=== PATIENT | female | born 1960 | race Caucasian/White ===

== ENCOUNTER 2021-08-17 14:47 | Inpatient (IN) ==
[2021-08-17] MEDS ORDERED: SODIUM CHLORIDE 0.9% 1,000 ML IV STA (16:43)
[2021-08-17] MEDS ORDERED: ONDANSETRON 4 MG/2 ML VIAL IV STA (16:43)
[2021-08-17 17:23] LABS: Basophils # 0.1 10*3/uL (0.0-0.2); Basophils % 0.3 % (0.0-0.8); Eosinophils % 0.1 % (0.00-10.9); Hematocrit 36.7 VOL% (35.7-47.0); Hemoglobin 12.4 GM/DL (12.0-16.0); Immature Granulocytes % 0.5 %; Immature Granulocytes Absolute 0.09 #; Lymphocytes # 0.5 10*3/uL (1.4-4.0); Lymphocytes % 2.7 % (21.3-54.2); Mean Corpuscular HGB Conc 33.8 GM/DL (32-36); Mean Corpuscular Volume 95.3 FL (87-102); Mean Platelet Volume 10.2 FL (9.6-12.0); Monocytes % 2.9 % (1.7-12.7); Neutrophils % 93.5 % (38.7-73.9); Platelet Count 319 T/CUMM (130-400); Red Blood Count 3.85 MC/CUMM (3.8-5.5); Red Cell Distribution Width 12.3 % (9.3-17.3)
[2021-08-17 17:48] LABS: Alanine Aminotransferase 14 U/L (13-56); Alkaline Phosphatase 65 U/L (45-117); Aspartate Amino Transferase 14 U/L (0-37); Blood Urea Nitrogen 34 MG/DL (7-18); Calcium 8.7 MG/DL (8.5-10.1); Carbon Dioxide 27 MMOL/L (21-32); Estimated Glom Filtration Rate 7 ML/MIN; Glucose 130 MG/DL (74-106); Osmolality,Calculated 279.1 MOS/KG (273-304); Potassium 2.9 MMOL/L (3.5-5.1); Sodium 135 MMOL/L (136-145); Total Protein 7.1 G/DL (6.4-8.2)
[2021-08-17] MEDS ORDERED: HYDROmorphone 2 MG/1 ML VIAL ONE (17:53)
[2021-08-17 17:55] LABS: Band Neutrophils 4 % (0-10); Lymphocytes 3 % (20-55); Segmented Neutrophils 93 % (50-85); Total Cells Counted 100
[2021-08-17 17:56] LABS: Platelet Estimate Adequate
[2021-08-17] MEDS ORDERED: HYDROmorphone 2 MG/1 ML VIAL IV STA (18:01)
[2021-08-17] MEDS ORDERED: VANCOMYCIN INJ 1,000 MG in SODIUM CHLORIDE 0.9% 250 ML IV STA (19:26)
[2021-08-17] MEDS ORDERED: POTASSIUM CHLORIDE 20 MEQ TABLET PO STA (19:39)
[2021-08-17] MEDS ORDERED: NICOTINE 21 MG/24 HR PATCH TRANSDERM PRN (20:15)
[2021-08-17] MEDS ORDERED: MORPHINE 2 MG/1 ML SYRINGE IV PRN (20:15)
[2021-08-17] MEDS ORDERED: hydrALAZINE 20 MG/1 ML VIAL IV PRN (20:15)
[2021-08-17] MEDS ORDERED: ACETAMINOPHEN 325 MG TABLET PO PRN (20:15)
[2021-08-17] MEDS ORDERED: GLUCAGON 1 MG VIAL IM PRN (20:15)
[2021-08-17] MEDS ORDERED: DEXTROSE 10% 25 GM/250 ML BAG IV PRN (20:21)
[2021-08-17] MEDS ORDERED: LEVOFLOXACIN INJ 500 MG/100 ML PREMIX IV ONE (20:21)
[2021-08-17] MEDS ORDERED: VANCOMYCIN INJ 2,000 MG in SODIUM CHLORIDE 0.9% 500 ML IV PRN (20:44)
[2021-08-17 20:50] LABS: Bacteria,Urine Occasional /HPF (Few); Bilirubin,Urine Negative (Negative); Blood, Urine Negative (Negative); Glucose,Urine (UA) Negative (Negative); Ketones,Urine Negative (Negative); Mucus,Urine Occasional /LPF (Occasional); Nitrite,Urine Negative (Negative); Protein,Urine 30 MG/DL; Squamous Epithelial Cell,Urine Occasional /HPF (0-10); Urine Appearance CLEAR (Clear); Urine Color Yellow (Yellow); Urine Urobilinogen < 2.0 EU/DL (<2.0)
[2021-08-17] MEDS ORDERED: VANCOMYCIN INJ 1,000 MG in SODIUM CHLORIDE 0.9% 250 ML IV ONE (21:00)
[2021-08-17 22:12] LABS: INR 1.1; PT Patient Result 11.9 SECS (10.5-12.0)
[2021-08-18] MEDS: HEPARIN 5,000 UNIT/1 ML VIAL SUBCUT SCH ×3 (01:12→22:03)
[2021-08-18 03:44] LABS: Basophils # 0.1 10*3/uL (0.0-0.2); Basophils % 0.3 % (0.0-0.8); Eosinophils % 0.2 % (0.00-10.9); Hematocrit 31.1 VOL% (35.7-47.0); Hemoglobin 10.4 GM/DL (12.0-16.0); Immature Granulocytes % 0.7 %; Immature Granulocytes Absolute 0.13 #; Lymphocytes # 1.1 10*3/uL (1.4-4.0); Lymphocytes % 5.8 % (21.3-54.2); Mean Corpuscular HGB Conc 33.4 GM/DL (32-36); Mean Corpuscular Volume 97.2 FL (87-102); Mean Platelet Volume 10.4 FL (9.6-12.0); Platelet Count 281 T/CUMM (130-400); Red Cell Distribution Width 12.4 % (9.3-17.3); White Blood Count 18.3 T/CUMM (4-12)
[2021-08-18 04:08] LABS: Albumin 2.2 G/DL (3.4-5.0); Bilirubin,Total 0.8 MG/DL (0.20-1.00); Calcium 7.5 MG/DL (8.5-10.1); Osmolality,Calculated 284.7 MOS/KG (273-304); Potassium 3.1 MMOL/L (3.5-5.1); Risk Ratio 4.63; Total Protein 6.5 G/DL (6.4-8.2); VLDL Cholesterol 25.2 MG/DL
[2021-08-18] MEDS: PANTOPRAZOLE 40 MG TABLET PO SCH (09:47)
[2021-08-18] MEDS ORDERED: POTASSIUM CHLORIDE 20 MEQ TABLET PO ONE (14:03)
[2021-08-18] MEDS ORDERED: MAGNESIUM SULF RIDER 2 GM/50 ML PREMIX IV PRN (14:03)
[2021-08-18] MEDS ORDERED: MAGNESIUM SULF RIDER 4 GM/100 ML PREMIX IV PRN (14:03)
[2021-08-18 17:22] LABS: Amylase,Peritoneal Fluid 13 U/L
[2021-08-18 17:41] LABS: Total Protein,Peritoneal Fluid 2.1 G/DL
[2021-08-18 18:50] LABS: Neutrophils,Peritoneal Fluid 85 %
[2021-08-18 18:51] LABS: RBC,Peritoneal Fluid > 100000 T/CUMM
[2021-08-18] MEDS ORDERED: BISACODYL 5 MG TABLET PO PRN (19:19)
[2021-08-19 05:24] LABS: Basophils % 0.4 % (0.0-0.8); Eosinophils # 0.2 10*3/uL (0.0-0.87); Eosinophils % 1.5 % (0.00-10.9); Hematocrit 27.6 VOL% (35.7-47.0); Hemoglobin 8.9 GM/DL (12.0-16.0); Immature Granulocytes % 0.9 %; Lymphocytes # 1.1 10*3/uL (1.4-4.0); Lymphocytes % 10.2 % (21.3-54.2); Mean Corpuscular HGB Conc 32.2 GM/DL (32-36); Mean Platelet Volume 10.8 FL (9.6-12.0); Monocytes % 5.4 % (1.7-12.7); Neutrophils % 81.6 % (38.7-73.9); Platelet Count 227 T/CUMM (130-400); Red Blood Count 2.76 MC/CUMM (3.8-5.5); Red Cell Distribution Width 12.4 % (9.3-17.3); White Blood Count 10.8 T/CUMM (4-12)
[2021-08-19 05:56] LABS: Calcium 7.9 MG/DL (8.5-10.1); Osmolality,Calculated 287.8 MOS/KG (273-304); Potassium 2.9 MMOL/L (3.5-5.1)
[2021-08-19] MEDS: PANTOPRAZOLE 40 MG TABLET PO SCH (11:16)
[2021-08-19] MEDS: HEPARIN 5,000 UNIT/1 ML VIAL SUBCUT SCH ×2 (11:16→21:35)
[2021-08-19] MEDS ORDERED: POTASSIUM CHLORIDE 20 MEQ TABLET PO ONE (12:08)
[2021-08-19] MEDS ORDERED: LEVOFLOXACIN INJ 250 MG/50 ML PREMIX IV SCH (21:00)
[2021-08-19] MEDS ORDERED: SERTRALINE 25 MG TABLET PO SCH (21:00)
[2021-08-19] MEDS ORDERED: HEPARIN 1,000 UNIT/1 ML VIAL INTRAPERIT SCH (21:00)
[2021-08-19] MEDS: POTASSIUM CHLORIDE 20 MEQ TABLET PO SCH (21:35)
[2021-08-20 05:53] LABS: Basophils # 0.1 10*3/uL (0.0-0.2); Basophils % 0.6 % (0.0-0.8); Eosinophils # 0.5 10*3/uL (0.0-0.87); Eosinophils % 5.8 % (0.00-10.9); Hematocrit 35.7 VOL% (35.7-47.0); Hemoglobin 11.8 GM/DL (12.0-16.0); Immature Granulocytes % 0.9 %; Immature Granulocytes Absolute 0.07 #; Lymphocytes # 1.4 10*3/uL (1.4-4.0); Lymphocytes % 17.8 % (21.3-54.2); Mean Corpuscular HGB Conc 33.1 GM/DL (32-36); Mean Corpuscular Volume 98.9 FL (87-102); Mean Platelet Volume 11.3 FL (9.6-12.0); Monocytes % 4.1 % (1.7-12.7); Neutrophils % 70.8 % (38.7-73.9); Platelet Count 133 T/CUMM (130-400); Red Blood Count 3.61 MC/CUMM (3.8-5.5); Red Cell Distribution Width 12.1 % (9.3-17.3); White Blood Count 7.7 T/CUMM (4-12)
[2021-08-20 05:58] LABS: Calcium 8.7 MG/DL (8.5-10.1); Potassium 3.9 MMOL/L (3.5-5.1)
[2021-08-20 06:32] LABS: Hypochromia Slight; Microcytosis Slight
[2021-08-20] MEDS ORDERED: CALCIUM CARBONATE CHEW 500 MG TABLET PO PRN (08:04)
[2021-08-20] MEDS: HEPARIN 5,000 UNIT/1 ML VIAL SUBCUT SCH (08:20)
[2021-08-20] MEDS: PANTOPRAZOLE 40 MG TABLET PO SCH (08:21)
[2021-08-20] MEDS: POTASSIUM CHLORIDE 20 MEQ TABLET PO SCH (08:21)
[2021-08-20 13:51] VITALS: BP 107/66
== END 2021-08-20 15:50 | disposition home health service (06) | DRG 371 ==
LOC: N.ED 14:47 → SUATTDRO 20:13 → N.EDINP 20:13 → N.TELEN 08-18 19:27
PROVIDERS: ADMIT Hospitalist; ATTEND Internal Medicine